=== PATIENT | male | born 1970 | race Caucasian/White ===

== ENCOUNTER 2020-09-16 13:19 | Emergency (ER) | payer OTHER, SELFPAY ==
--- NOTE | ~2020-09-16 | XR_ITS ---
EXAMINATION: XR KNEE, LEFT CLINICAL INFORMATION: Pain COMPARISON: Three 1017 TECHNIQUE: Four views of the left knee. FINDINGS: No fracture or subluxation. Compartmental joint spaces are maintained. No joint effusion. Chondrocalcinosis at the medial and lateral compartments. Small radiopaque densities are seen superficially at the posterior distal thigh. These are unchanged. XR/XR knee LT 4V IMPRESSION: No acute abnormality. Medial and lateral compartment chondrocalcinosis which has progressed since 2017.
[2020-09-16 13:37] VITALS: BP 127/63; PULSE 88; RESP 18; TEMP 37.1; O2SAT 95; BMI 29.2
--- NOTE | 2020-09-16 13:53 | ED.LOWEXIN ---
HPI - Extremity Injury (Lower) General Chief Complaint: Extremity Injury, Lower Stated Complaint: L KNEE PAIN Time Seen by Provider: 09/16/20 13:53 History of Present Illness HPI Narrative: Patient's complains of pain in the left knee when he stood up and felt a pop he had no fall he has had no swelling no fever no other joint swelling Related Data Previous Rx's Medication Instructions Recorded ibuprofen 600 mg PO Q6H PRN #20 tab 09/16/20 Allergies Allergy/AdvReac Type Severity Reaction Status Date / Time No Known Allergies Allergy Verified 09/16/20 13:40 Review of Systems Review of Systems: Left knee pain Negatives are no fever no chills no dizziness or weakness no chest pain no shortness of breath no skin rash no numbness no weakness no calf pain or swelling PMFSH Past Medical History Source: nursing notes reviewed Medical History (Updated 09/16/20 @ 15:32 by MARITA Rosa) Chronic back pain Social History Social History Advance Directives: No Advance Directives Information Provided: No Physical Exam Vital Signs: Vital Signs: Last Vital Signs Temp 98.7 F 09/16/20 13:37 Pulse 88 09/16/20 13:37 Resp 18 09/16/20 13:37 BP 127/63 09/16/20 13:37 Pulse Ox 95 09/16/20 13:37 Body Mass Index 29.2 General appearance no acute distress, uncomfortable holding left knee straight, A&O x3 cooperative The head is normocephalic atraumatic Neck is supple Respiratory no distress Extremities the left knee has both medial and lateral tenderness it is normal appearance there is no obvious effusion no redness no warmth it extends to 180 degrees he can do a straight leg raise, it flexes close to 90, no obvious ligamentous laxity neurovascular intact distal Skin no rashes Neuro no focal deficit Course Course Course Narrative: X-ray showed some degenerative changes, no acute findings no effusion Patient is given Hank wrap and crutches and will follow with orthopedist Discharge Plan Discharge Clinical Impression: Arthralgia of knee, left Patient Disposition: Home, Self-Care Additional Instructions: Follow with orthopedist for for further evaluation Return any concerns Prescriptions: New ibuprofen 600 mg tablet 600 mg PO Q6H PRN (Reason: pain) Qty: 20 RF: 0 Referrals: Shaq Lopez MD [Physician] - 2 days (Left knee pain and arthritis)
[2020-09-16] MEDS: Ketorolac Tromethamine 30 MG/ML VIAL IM (15:33)
== END 2020-09-16 15:47 | disposition home or self-care (01) ==
PROVIDERS: Emergency Provider Emergency Medicine; PCP Internal Medicine
DX: M25.562 Pain in left knee (principal); I10 Essential (primary) hypertension; G90.50 Complex regional pain syndrome I, unspecified
CPT/HCPCS: 73564; 96372; 99283; 99284; J1885

== ENCOUNTER 2020-09-21 07:28 | Outpatient (REF) | payer OTHER, SELFPAY ==
--- NOTE | ~2020-09-21 | XR_ITS ---
EXAMINATION: KNEE X-RAY CLINICAL INFORMATION: Left knee pain COMPARISON: Previous x-ray most recent 09/16/2020 TECHNIQUE: Standing AP view of both knees and sunrise view of the left knee FINDINGS: Left knee: Bone alignment is normal. No fracture or dislocation is seen. There is medial and lateral degenerative meniscal calcification. Standing AP view of the right knee demonstrates degenerative meniscal calcification. XR/XR knee LT 2V IMPRESSION: Bilateral degenerative meniscal calcification.
--- NOTE | ~2020-09-21 | XR_ITS ---
EXAMINATION: KNEE X-RAY CLINICAL INFORMATION: Left knee pain COMPARISON: Previous x-ray most recent 09/16/2020 TECHNIQUE: Standing AP view of both knees and sunrise view of the left knee FINDINGS: Left knee: Bone alignment is normal. No fracture or dislocation is seen. There is medial and lateral degenerative meniscal calcification. Standing AP view of the right knee demonstrates degenerative meniscal calcification. XR/XR knee standing BI IMPRESSION: Bilateral degenerative meniscal calcification.
== END 2020-09-21 07:29 | disposition home or self-care (01) ==
LOC: HO.HOSX 07:28
PROVIDERS: Visit Provider Physician Assistant
DX: M25.562 Pain in left knee (principal); Z91.81 History of falling; W38.XXXA Explosion and rupture of other specified pressurized devices, initial encounter
CPT/HCPCS: 73560; 73565

== ENCOUNTER 2020-09-21 14:07 | Emergency (ER) | payer OTHER, SELFPAY ==
[2020-09-21 14:22] VITALS: BP 123/56; PULSE 84; RESP 16; TEMP 36.9; O2SAT 97; BMI 27.3
[2020-09-21] MEDS: Tetracaine HCl/PF 0.5% Oph Sol 4 ML DROPS 3 DROP EYE-BOTH (15:24)
[2020-09-21] MEDS: Fluorescein Sodium STRIP 1 STRIP EYE-BOTH (15:25)
[2020-09-21 16:02] VITALS: BP 126/64; PULSE 88; RESP 20; TEMP 36.8; O2SAT 98
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
== END 2020-09-21 17:45 | disposition home or self-care (01) ==
PROVIDERS: Emergency Provider Emergency Medicine Emergency Medical Services; PCP Internal Medicine
DX: T65.891A Toxic effect of other specified substances, accidental (unintentional), initial encounter (principal); T26.51XA Corrosion of right eyelid and periocular area, initial encounter; Y93.9 Activity, unspecified; Y92.531 Health care provider office as the place of occurrence of the external cause; Y99.9 Unspecified external cause status; I10 Essential (primary) hypertension
CPT/HCPCS: 99284

== ENCOUNTER → 2020-09-24 14:16 | Outpatient (BNVA) | payer OTHER, SELFPAY | PROVIDERS: PCP Internal Medicine; Visit Provider Physician Assistant | DX: M17.12 Unilateral primary osteoarthritis, left knee (principal); M54.41 Lumbago with sciatica, right side | CPT/HCPCS: 99202; J1040 ==

== ENCOUNTER 2021-07-18 09:45 | Emergency (ER) | payer MEDICAID, SELFPAY ==
--- NOTE | ~2021-07-18 | CT_ITS ---
EXAMINATION: CT ABDOMEN AND PELVIS WITH CONTRAST CLINICAL INFORMATION: Right lower quadrant pain COMPARISON: January 07, 2011 TECHNIQUE: Multidetector volumetric images were obtained from the superior aspect of the liver through the pubic symphysis following administration 85 mL of Omnipaque 350 intravenous contrast. Sagittal and coronal reformatted images were obtained on the technologist's workstation. Oral contrast: No This CT examination was performed using dose optimization techniques as appropriate, variously including the following: *Automated exposure control *Adjustment of mA and/or kV according to patient size (this includes techniques or standardized protocols for targeted exams where dose is matched to indication/reason for exam; i.e. extremities or head) *Use of iterative reconstruction technique DLP: 703 mGy-cm FINDINGS: LUNG BASES: There are a few scattered regions of groundglass opacity present likely related to atelectasis. No pleural or pericardial effusion identified. LIVER, GALLBLADDER, AND BILIARY TREE: There appears to be some degree of fatty infiltration of the liver. Mild hepatomegaly is present with vertical span of 20 cm. The gallbladder is unremarkable with no evidence of radiopaque gallstones, gallbladder wall thickening, or obvious pericholecystic inflammatory changes. PANCREAS: Unremarkable. SPLEEN: Unremarkable. ADRENAL GLANDS: Unremarkable. KIDNEYS AND URETERS: The kidneys are normal in size, shape, and attenuation. No hydronephrosis, hydroureter, or calculi seen. No perinephric stranding. BLADDER: Unremarkable. GASTROINTESTINAL TRACT: No dilated loops of large or small bowel are evident. No free air or free fluid is appreciated. There is a duodenal diverticulum present. There is mild diverticulosis of the sigmoid colon. No pericolonic inflammatory changes seen. The appendix appears unremarkable. ABDOMINAL WALL: No significant hernia is appreciated. LYMPH NODES: No lymphadenopathy appreciated. VASCULAR: Portal vein is patent. Visceral arteries are patent. There is some mild ectasia of the infrarenal abdominal aorta into the aortic bifurcation to a diameter of approximately 2.7 cm. There is some mild ectasia of the right common iliac artery to approximately 1.6 cm in diameter. PELVIC VISCERA: Unremarkable. OSSEOUS STRUCTURES: No suspicious destructive bony lesion identified. CT/CT abdomen pelvis w con IMPRESSION: No evidence of acute appendicitis or colitis. No evidence of obstructive uropathy. Mild hepatomegaly with fatty infiltration. Fleischner guidelines were followed.
[2021-07-18 09:56] VITALS: BP 112/71; PULSE 82; RESP 19; TEMP 36.6; O2SAT 98; BMI 27.7
[2021-07-18 10:23] LABS: MANUAL DIFF FLAG NO
[2021-07-18 10:25] LABS: Basophils Percent Auto 0.4 % (0-2); Eosinophils Absolute Auto 0.1 X10*3/uL (0.0-0.4); Eosinophils Percent Auto 1.8 % (0-4); Hematocrit 43.5 % (42.0-52.0); Hemoglobin 14.5 g/dl (14.0-18.0); Imm Gran Abs Auto 0.02 X10*3/uL (0.00-0.03); Imm Gran Pct Auto 0.3 % (0.0-0.4); Lymphocytes Absolute Auto 2.4 X10*3/uL (1.2-4.9); Lymphocytes Percent Auto 32.8 % (20-40); Mean Corpuscular HGB Conc 33.3 g/dl (31.0-36.0); Mean Corpuscular Hemoglobin 28.5 pg (27.0-33.0); Mean Corpuscular Volume 85.6 fL (80.0-98.0); Mean Platelet Volume 11.1 fL (9.4-12.4); Monocytes Absolute Auto 0.4 X10*3/uL (0.1-1.2); Monocytes Percent Auto 6.1 % (2-11); Neutrophils Absolute Auto 4.2 x10*3/uL (2.0-8.3); Neutrophils Percent Auto 58.6 % (45-73); Platelet Count 316 X10*3/uL (160-400); Red Blood Count 5.08 X10*6/uL (4.60-5.80); Red Cell Distribution Width 13.4 % (11.0-16.0); White Blood Count 7.2 X10*3/uL (4.8-10.8)
[2021-07-18 10:44] LABS: Alanine Aminotransferase 23 U/L (0-40); Albumin Level 4.3 g/dL (3.5-5.0); Alkaline Phosphatase 76 U/L (39-117); Anion Gap 12 (12-20); Aspartate Amino Transferase 17 U/L (5-37); Bilirubin Direct 0.2 mg/dL (0.0-0.5); Bilirubin Total 0.6 mg/dL (0.0-1.0); Blood Urea Nitrogen 23 mg/dL (9-16); Calcium 10.8 mg/dL (8.4-10.2); Carbon Dioxide 29 mmol/L (22-29); Chloride 106 mmol/L (96-108); Creatinine Clr Calc Pharmacy 112.3; Estimated Glomerular Filt Rate > 60; Glucose Random 101 mg/dL (60-115); Lipase 36 U/L (8-78); Potassium 4.5 mmol/L (3.3-5.1); Sodium 142 mmol/L (135-145); Total Protein 7.2 g/dL (6.5-8.0)
--- NOTE | 2021-07-18 10:55 | ED_ITS ---
HPI - Abdominal Pain General Chief Complaint: Abdominal Pain Stated Complaint: Abd pain Time Seen by Provider: 07/18/21 10:44 Source: patient Mode of arrival: ambulatory Limitations: no limitations History of Present Illness HPI narrative: Patient comes to emergency room complaining of right lower quadrant pain. Patient states that the pain started yesterday, gradually getting worse. Patient states that this morning he had couple of episodes of vomiting and diarrhea. Patient states that the right lower quadrant pain gets worse with any movement walking or sitting up. Patient denies fever chills, and no UTI symptoms. Related Data Previous Rx's Medication Instructions Recorded ibuprofen 600 mg tablet 600 mg PO Q6H PRN #20 tab 09/16/20 artifi.tears(hypromellose)(PF) 0.3 1 drp OPHTHALMIC-RIGHT Q4-6H PRN 09/21/20 % eye drops #10 ml oxycodone 5 mg tablet 5 mg PO BID PRN #6 tab 07/18/21 Allergies Allergy/AdvReac Type Severity Reaction Status Date / Time No Known Allergies Allergy Verified 09/24/20 14:43 Review of Systems Review of Systems Constitutional : No Weight loss, No Fever, No Chills, No Night Sweats, No Fatigue, No Malaise ENT/Mouth : No Hearing loss, No Ear Pain, No Nasal Congestion, No Sinus Pain, No Hoarseness, No sore throat, No Rhinorrhea, No Swallowing Difficulty Eyes: No Eye Pain, No Swelling, No Redness, No Foreign Body, No Discharge, No Vision Changes Cardiovascular : No Chest Pain, No SOB, No Dyspnea on Exertion, No Orthopnea, No Edema, No Palpitations Respiratory : No Cough, No Sputum, No Wheezing, No Smoke Exposure, No Dyspnea Gastrointestinal : Complaining of mild nausea, a couple episodes of vomiting and diarrhea, complaining of worsening right lower quadrant pain Genitourinary : no irregular bleeding, No Dysuria, No Urinary Frequency, No Hematuria, No Urinary Incontinence, No Urgency, No Flank Pain, No Urinary Flow Changes, No Hesitancy Musculoskeletal : No joint pain, No Myalgias, No Joint Swelling Skin : No Skin Lesions, No rash Neuro : No Weakness, No Numbness, No Paresthesias, No Loss of Consciousness, No Dizziness, No Headache Psych : No Anxiety/Panic, No Depression, No SI/HI/AH/VH, No Social Issues, Heme/Lymph: No Bruising, No Bleeding,No Lymphadenopathy Endocrine : No Polyuria, No Polydipsia, No Temperature Intolerance Physical Exam Vital Signs: Vital Signs: Last Vital Signs Temp 98 F 07/18/21 09:56 Pulse 71 07/18/21 11:38 Resp 18 07/18/21 11:38 BP 129/82 07/18/21 11:38 Pulse Ox 97 07/18/21 11:38 BMI result Body Mass Index 27.7 Const: Other: Appearance: Alert. Oriented X3. No acute distress. Eyes: Pupils equal, round and reactive to light. ENT: Pharynx normal. Neck: Normal inspection. Neck supple. No lymph nodes noted. No crepitus CVS: Normal heart rate and rhythm. Pulses normal. Normal S1 and S2 Respiratory: No respiratory distress. Breath sounds normal. No Wheezing. No rales Abdomen: Soft , tenderness to palpation in the right lower quadrant over McBurney's point, positive rebound tenderness in the right and left lower quadrants, no guarding Skin: Skin warm and dry. Normal skin color. Normal skin turgor. Extremities: No lower extremity edema. No Lacerations. No Rash Neuro: Oriented X 3. No motor deficit. No sensory deficit. Moving all extermities. No slurred speech. Course Course Course Narrative: I discussed the labs and CT scan with the patient, no acute findings. Also Dr. Ospina took a look at the CT scan, who agrees that the CT scan does not look suspicious for appendicitis. I discussed with the patient that if the abdominal pain worsens, he needs to return to the emergency room. Sometimes, appendicitis is not obvious immediately. As mentioned above, the CT scan shows a normal appendix, and white blood cell count normal and at his baseline. Urinalysis does not show hematuria or UTI. No nephrolithiasis on CT MDM - Abdominal Pain Lab Data Result diagrams: 07/18/21 10:19 07/18/21 10:19 Labs: Lab Results 07/18/21 07/18/21 07/18/21 Range/Units 10:19 10:19 10:19 WBC 7.2 (4.8-10.8) X10*3/uL RBC 5.08 (4.60-5.80) X10*6/uL Hgb 14.5 (14.0-18.0) g/dl Hct 43.5 (42.0-52.0) % MCV 85.6 (80.0-98.0) fL MCH 28.5 (27.0-33.0) pg MCHC 33.3 (31.0-36.0) g/dl RDW 13.4 (11.0-16.0) % Plt Count 316 (160-400) X10*3/uL MPV 11.1 (9.4-12.4) fL Immature Gran % (Auto) 0.3 (0.0-0.4) % Neut % (Auto) 58.6 (45-73) % Lymph % (Auto) 32.8 (20-40) % [place] % (Auto) 6.1 (2-11) % Eos % (Auto) 1.8 (0-4) % Baso % (Auto) 0.4 (0-2) % Lymph # (Auto) 2.4 (1.2-4.9) X10*3/uL [place] # (Auto) 0.4 (0.1-1.2) X10*3/uL Eos # (Auto) 0.1 (0.0-0.4) X10*3/uL Baso # (Auto) 0.0 (0.0-0.2) X10*3/uL Abs Immat Gran (auto) 0.02 (0.00-0.03) X10*3/uL Absolute Neuts (auto) 4.2 (2.0-8.3) x10*3/uL Absolute Nucleated RBC 0.000 (0.0-0.012) X10*3/uL Nucleated RBC % (auto) 0.0 (0.0-0.2) /100WBC Sodium 142 (135-145) mmol/L Potassium 4.5 (3.3-5.1) mmol/L Chloride 106 (96-108) mmol/L Carbon Dioxide 29 (22-29) mmol/L Anion Gap 12 (12-20) BUN 23 H (9-16) mg/dL Creatinine 0.81 (0.5-1.4) mg/dL Estim Creat Clear Calc 112.3 Estimated GFR > 60 Random Glucose 101 (60-115) mg/dL Calcium 10.8 H (8.4-10.2) mg/dL Total Bilirubin 0.6 (0.0-1.0) mg/dL Direct Bilirubin 0.2 (0.0-0.5) mg/dL AST 17 (5-37) U/L ALT 23 (0-40) U/L Alkaline Phosphatase 76 (39-117) U/L Total Protein 7.2 (6.5-8.0) g/dL Albumin 4.3 (3.5-5.0) g/dL Lipase 36 (8-78) U/L Urine Color Urine Appearance Urine pH (5.0-8.0) Ur Specific [place] (1.005-1.025) Urine Protein (NEG-TRACE) MG/DL Urine Glucose (UA) (NEG) MG/DL Urine Ketones (NEG) MG/DL Urine Blood (NEG) Urine Nitrite (NEG) Ur Leukocyte Esterase (NEG) COVID-19 ([facility]) (Negative) COVID-19 Clin Com 07/18/21 07/18/21 Range/Units 10:27 11:28 WBC (4.8-10.8) X10*3/uL RBC (4.60-5.80) X10*6/uL Hgb (14.0-18.0) g/dl Hct (42.0-52.0) % MCV (80.0-98.0) fL MCH (27.0-33.0) pg MCHC (31.0-36.0) g/dl RDW (11.0-16.0) % Plt Count (160-400) X10*3/uL MPV (9.4-12.4) fL Immature Gran % (Auto) (0.0-0.4) % Neut % (Auto) (45-73) % Lymph % (Auto) (20-40) % [place] % (Auto) (2-11) % Eos % (Auto) (0-4) % Baso % (Auto) (0-2) % Lymph # (Auto) (1.2-4.9) X10*3/uL [place] # (Auto) (0.1-1.2) X10*3/uL Eos # (Auto) (0.0-0.4) X10*3/uL Baso # (Auto) (0.0-0.2) X10*3/uL Abs Immat Gran (auto) (0.00-0.03) X10*3/uL Absolute Neuts (auto) (2.0-8.3) x10*3/uL Absolute Nucleated RBC (0.0-0.012) X10*3/uL Nucleated RBC % (auto) (0.0-0.2) /100WBC Sodium (135-145) mmol/L Potassium (3.3-5.1) mmol/L Chloride (96-108) mmol/L Carbon Dioxide (22-29) mmol/L Anion Gap (12-20) BUN (9-16) mg/dL Creatinine (0.5-1.4) mg/dL Estim Creat Clear Calc Estimated GFR Random Glucose (60-115) mg/dL Calcium (8.4-10.2) mg/dL Total Bilirubin (0.0-1.0) mg/dL Direct Bilirubin (0.0-0.5) mg/dL AST (5-37) U/L ALT (0-40) U/L Alkaline Phosphatase (39-117) U/L Total Protein (6.5-8.0) g/dL Albumin (3.5-5.0) g/dL Lipase (8-78) U/L Urine Color STRAW Urine Appearance CLEAR Urine pH 6.0 (5.0-8.0) Ur Specific [place] >= 1.030 H (1.005-1.025) Urine Protein NEG (NEG-TRACE) MG/DL Urine Glucose (UA) NEG (NEG) MG/DL Urine Ketones NEG (NEG) MG/DL Urine Blood NEG (NEG) Urine Nitrite NEG (NEG) Ur Leukocyte Esterase NEG (NEG) COVID-19 ([facility]) Negative (Negative) COVID-19 Clin Com See Note Discharge Plan Discharge Clinical Impression: Acute right lower quadrant pain Patient Disposition: Home, Self-Care Instructions: Abdominal Pain (ED) Additional Instructions: Please follow-up with your primary care physician tomorrow. If you have any worsening or new symptoms, please return to the emergency room or call 911 Prescriptions: New oxycodone 5 mg tablet 5 mg PO BID PRN (Reason: pain) Qty: 6 RF: 0 No Action ibuprofen 600 mg tablet 600 mg PO Q6H PRN (Reason: pain) Qty: 20 RF: 0 artifi.tears(hypromellose)(PF) 0.3 % drops 1 drp ophthalmic-Right Q4-6H PRN (Reason: dry eye(s)) Qty: 10 RF: 0 PMFSH Past Medical History Medical History Arthritis Chronic back pain Hypertension RSD (reflex sympathetic dystrophy) Surgical History H/O hernia repair Social History Social History Patient Tobacco Use Status: Former Tobacco user Smoked in Last 30 Days: Yes Use of substances other than those prescribed or required for medical reasons: No Advance Directives: No Advance Directives Information Provided: Yes Current occupational status: employed Current occupation: General Practitioner -
[2021-07-18 10:58] LABS: Appearance Urine CLEAR; Color Urine STRAW; Glucose Urine UA NEG (NEG); Leukocyte Esterase Urine NEG (NEG); Nitrite Urine NEG (NEG); Specific Gravity - Urine >= 1.030 (1.005-1.025); Urine Blood NEG (NEG); Urine Ketones NEG (NEG); Urine Protein NEG (NEG-TRACE)
--- NOTE | 2021-07-18 10:58 | ED.ABDPAIN ---
HPI - Abdominal Pain General Chief Complaint: Abdominal Pain Stated Complaint: Abd pain Time Seen by Provider: 07/18/21 10:44 Related Data Previous Rx's Medication Instructions Recorded ibuprofen 600 mg tablet 600 mg PO Q6H PRN #20 tab 09/16/20 artifi.tears(hypromellose)(PF) 0.3 1 drp OPHTHALMIC-RIGHT Q4-6H PRN 09/21/20 % eye drops #10 ml Allergies Allergy/AdvReac Type Severity Reaction Status Date / Time No Known Allergies Allergy Verified 09/24/20 14:43 Physical Exam Vital Signs: Vital Signs: Last Vital Signs Temp 98 F 07/18/21 09:56 Pulse 82 07/18/21 09:56 Resp 19 07/18/21 09:56 BP 112/71 07/18/21 09:56 Pulse Ox 98 07/18/21 09:56 BMI result Body Mass Index 27.7 Course Reevaluation(s) Reevaluation #1: BUN mildly elevated at 23, calcium mildly elevated at 10.8. CBC is unremarkable MDM - Abdominal Pain Lab Data Result diagrams: 07/18/21 10:19 07/18/21 10:19 Labs: Lab Results 07/18/21 07/18/21 07/18/21 Range/Units 10:19 10:19 10:19 WBC 7.2 (4.8-10.8) X10*3/uL RBC 5.08 (4.60-5.80) X10*6/uL Hgb 14.5 (14.0-18.0) g/dl Hct 43.5 (42.0-52.0) % MCV 85.6 (80.0-98.0) fL MCH 28.5 (27.0-33.0) pg MCHC 33.3 (31.0-36.0) g/dl RDW 13.4 (11.0-16.0) % Plt Count 316 (160-400) X10*3/uL MPV 11.1 (9.4-12.4) fL Immature Gran % (Auto) 0.3 (0.0-0.4) % Neut % (Auto) 58.6 (45-73) % Lymph % (Auto) 32.8 (20-40) % [place] % (Auto) 6.1 (2-11) % Eos % (Auto) 1.8 (0-4) % Baso % (Auto) 0.4 (0-2) % Lymph # (Auto) 2.4 (1.2-4.9) X10*3/uL [place] # (Auto) 0.4 (0.1-1.2) X10*3/uL Eos # (Auto) 0.1 (0.0-0.4) X10*3/uL Baso # (Auto) 0.0 (0.0-0.2) X10*3/uL Abs Immat Gran (auto) 0.02 (0.00-0.03) X10*3/uL Absolute Neuts (auto) 4.2 (2.0-8.3) x10*3/uL Absolute Nucleated RBC 0.000 (0.0-0.012) X10*3/uL Nucleated RBC % (auto) 0.0 (0.0-0.2) /100WBC Sodium 142 (135-145) mmol/L Potassium 4.5 (3.3-5.1) mmol/L Chloride 106 (96-108) mmol/L Carbon Dioxide 29 (22-29) mmol/L Anion Gap 12 (12-20) BUN 23 H (9-16) mg/dL Creatinine 0.81 (0.5-1.4) mg/dL Estim Creat Clear Calc 112.3 Estimated GFR > 60 Random Glucose 101 (60-115) mg/dL Calcium 10.8 H (8.4-10.2) mg/dL Total Bilirubin 0.6 (0.0-1.0) mg/dL Direct Bilirubin 0.2 (0.0-0.5) mg/dL AST 17 (5-37) U/L ALT 23 (0-40) U/L Alkaline Phosphatase 76 (39-117) U/L Total Protein 7.2 (6.5-8.0) g/dL Albumin 4.3 (3.5-5.0) g/dL Lipase 36 (8-78) U/L Discharge Plan Discharge Prescriptions: No Action ibuprofen 600 mg tablet 600 mg PO Q6H PRN (Reason: pain) Qty: 20 RF: 0 artifi.tears(hypromellose)(PF) 0.3 % drops 1 drp ophthalmic-Right Q4-6H PRN (Reason: dry eye(s)) Qty: 10 RF: 0 PMFSH Past Medical History Medical History Arthritis Chronic back pain Hypertension RSD (reflex sympathetic dystrophy) Surgical History H/O hernia repair Social History Social History Current occupational status: employed Current occupation: Line Service Person -
[2021-07-18] MEDS: ondansetron HCL 4 MG/2 ML VIAL IVPUSH (11:37)
[2021-07-18 11:38] VITALS: BP 129/82; PULSE 71; RESP 18; O2SAT 97
[2021-07-18] MEDS: Morphine Sulfate 4 MG/ML CARTRIDGE IVPUSH (11:38)
[2021-07-18 11:50] LABS: COVID-19 Test Negative (Negative); IDNOW Serial# 9DD0AD1C
[2021-07-18] MEDS: iohexoL 350 MG/ML 100 ML INFUS..BTL IV (12:28)
[2021-07-18] MEDS: Ketorolac Tromethamine 30 MG/ML VIAL IVPUSH (14:38)
== END 2021-07-18 14:42 | disposition home or self-care (01) ==
PROVIDERS: Emergency Provider Emergency Medicine; PCP Internal Medicine
DX: R10.31 Right lower quadrant pain (principal); Z20.822 Contact with and (suspected) exposure to COVID-19; I10 Essential (primary) hypertension
CPT/HCPCS: 36415; 74177; 80048; 80076; 81003; 83690; 85025; 87635; 96374; 96375; 99284; J1885; J2270; J2405; Q9967

== ENCOUNTER 2022-08-19 10:46 | Emergency (ER) | payer MEDICAID, SELFPAY ==
--- NOTE | ~2022-08-19 | XR_ITS ---
EXAMINATION: XR CHEST CLINICAL INFORMATION: Chest COMPARISON: 11/05/2009 TECHNIQUE: Frontal view of the chest was obtained. FINDINGS: No significant abnormality is noted involving the heart, lungs, mediastinum, bony thorax or soft tissues. XR/XR chest 1V IMPRESSION: Unremarkable examination.
--- NOTE | ~2022-08-19 | CT_ITS ---
EXAMINATION: CT HEAD WITHOUT CONTRAST CLINICAL INFORMATION: Hypertension and headache. Evaluate for bleeding. COMPARISON: 12/31/2008 TECHNIQUE: Contiguous axial imaging was performed from the skull base to vertex without intravenous administration of contrast. This CT examination was performed using dose optimization techniques as appropriate, variously including the following: *Automated exposure control *Adjustment of mA and/or kV according to patient size (this includes techniques or standardized protocols for targeted exams where dose is matched to indication/reason for exam; i.e. extremities or head) *Use of iterative reconstruction technique DLP: 807 mGy-cm FINDINGS: There is no evidence of acute intracranial hemorrhage or territorial infarction. No abnormal mass effect or midline shift is seen. Holliday to white matter differentiation is well preserved. No extra-axial fluid collections are identified. No hydrocephalus. No significant volume loss. There is no abnormal attenuation within the brain parenchyma. No acute osseous or soft tissue abnormality. The mastoid air cells and visualized portions of the paranasal sinuses are well aerated. CT/CT head/brain wo IV con IMPRESSION: No acute intracranial pathology.
[2022-08-19 10:52] VITALS: BP 149/95; PULSE 93; RESP 18; TEMP 37.2; O2SAT 97; BMI 29.0
--- NOTE | 2022-08-19 10:55 | ECG_ITS ---
Test Reason : CP Blood Pressure : / mmHG Vent. Rate : 087 BPM Atrial Rate : 087 BPM P-R Int : 142 ms QRS Dur : 100 ms QT Int : 364 ms P-R-T Axes : 033 004 033 degrees QTc Int : 438 ms Normal sinus rhythm Minimal voltage criteria for LVH, may be normal variant ( R in aVL ) Nonspecific T wave abnormality Abnormal ECG When compared with ECG of 01-SEP-2018 18:23, No significant change was found Referred By: Generic ED Physician Electronically Signed By:LAYTON MARTINEZ
[2022-08-19 11:10] LABS: MANUAL DIFF FLAG NO
[2022-08-19 11:11] LABS: Basophils Percent Auto 0.3 % (0-2); Eosinophils Absolute Auto 0.1 X10*3/uL (0.0-0.4); Eosinophils Percent Auto 0.9 % (0-4); Hematocrit 44.3 % (42.0-52.0); Imm Gran Abs Auto 0.02 X10*3/uL (0.00-0.03); Imm Gran Pct Auto 0.3 % (0.0-0.4); Lymphocytes Percent Auto 31.1 % (20-40); Mean Corpuscular HGB Conc 33.9 g/dl (31.0-36.0); Mean Corpuscular Hemoglobin 28.2 pg (27.0-33.0); Mean Corpuscular Volume 83.4 fL (80.0-98.0); Mean Platelet Volume 11.1 fL (9.4-12.4); Monocytes Absolute Auto 0.3 X10*3/uL (0.1-1.2); Monocytes Percent Auto 5.2 % (2-11); Neutrophils Absolute Auto 4.1 x10*3/uL (2.0-8.3); Neutrophils Percent Auto 62.2 % (45-73); Platelet Count 314 X10*3/uL (160-400); Red Blood Count 5.31 X10*6/uL (4.60-5.80); Red Cell Distribution Width 13.2 % (11.0-16.0); White Blood Count 6.5 X10*3/uL (4.8-10.8)
[2022-08-19 11:21] LABS: COVID-19 Test Negative (Negative); IDNOW Serial# 16C4AD1C
[2022-08-19 11:27] LABS: Alanine Aminotransferase 36 U/L (0-40); Albumin Level 4.5 g/dL (3.5-5.0); Alkaline Phosphatase 111 U/L (39-117); Anion Gap 14 (12-20); Aspartate Amino Transferase 18 U/L (5-37); Bilirubin Direct < 0.2 mg/dL (0.0-0.5); Bilirubin Total 0.5 mg/dL (0.0-1.0); Blood Urea Nitrogen 22 mg/dL (9-16); Calcium 9.9 mg/dL (8.4-10.2); Carbon Dioxide 26 mmol/L (22-29); Chloride 101 mmol/L (96-108); Creatinine Clr Calc Pharmacy 128.6; Estimated Glomerular Filt Rate > 60; Glucose Random 228 mg/dL (60-115); Lipase 17 U/L (8-78); Potassium 4.1 mmol/L (3.3-5.1); Sodium 137 mmol/L (135-145); Total Protein 7.3 g/dL (6.5-8.0)
[2022-08-19 11:37] LABS: Troponin-I High Sensitivity < 3.5 ng/L (<3.5-35.0)
[2022-08-19 12:38] VITALS: BP 136/86; PULSE 81; RESP 18; O2SAT 95
--- NOTE | 2022-08-19 12:43 | PC.NURSE ---
pt alert and oriented, skin appropriate for ethnicity, respirations even and unlabored, pt reports substernal/left sided chest pain describes it as pressure/squeezing non-radiating but reports having a bad headache with light sensitivity and states that his blood pressure has been running high at home systolic in the 160-170's. ns on the monitor and bp stable at this time
[2022-08-19 12:48] LABS: Magnesium 1.7 mg/dL (1.6-2.6)
--- NOTE | 2022-08-19 13:57 | ED_ITS ---
HPI - Chest Pain General Chief Complaint: Chest Pain Stated Complaint: Chest pressure/HBP Time Seen by Provider: 08/19/22 13:42 Source: patient Mode of arrival: ambulatory Limitations: no limitations History of Present Illness HPI narrative: A 52-year-old male history of hypertension controlled with amlodipine 2.5 mg daily yesterday patient had the left-sided chest pressure and temporal pounding headache and patient suddenly became diaphoretic patient checked his blood pressure was high and remained high until this morning the chest pain has resolved but the pounding headache still there patient came in for further evaluation. Patient felt left-sided chest pressure that lasted for about 2 hours yesterday with no radiation no relieving factor or aggravating factor. Related Data Previous Rx's Medication Instructions Recorded ibuprofen 600 mg tablet 600 mg PO Q6H PRN pain #20 tabs 09/16/20 artifi.tears(hypromellose)(PF) 0.3 1 drp ophthalmic-Right Q4-6H PRN 09/21/20 % eye drops dry eye(s) #10 mL oxycodone 5 mg tablet 5 mg PO BID PRN pain #6 tabs 07/18/21 amlodipine 5 mg tablet 5 mg PO DAILY #30 tabs 08/19/22 Allergies Allergy/AdvReac Type Severity Reaction Status Date / Time No Known Allergies Allergy Verified 09/24/20 14:43 Review of Systems Review of Systems: All other systems are reviewed and are negative Constitutional: Reports as per HPI and Reports no additional constitutional complaints Eyes: Reports as per HPI and Reports no additional eye complaints Reports system reviewed and no additional complaints, except as documented Cardiovascular: Reports as per HPI and Reports no additional cardiovascular complaints Respiratory: Reports as per HPI and Reports no additional respiratory complaints Gastrointestinal: Reports as per HPI and Reports no additional gastrointestinal complaints Genitourinary: Reports no additional female genitourinary complaints Musculoskeletal: Reports no additional musculoskeletal complaints Skin/Breast: Reports system reviewed and no additional complaints, except as docu Psychiatric: Reports no additional psychiatric complaints Endocrine: Reports no additional endocrine complaints Hematologic/Lymphatic: Reports no additional hematologic/lymphatic complaints Allergic/Immunologic: Reports no additional allergic/immunologic complaints Reports system reviewed and no additional complaints, except as documented and Reports Abnormal speech present [facility] Past Medical History Medical History Arthritis Chronic back pain Hypertension RSD (reflex sympathetic dystrophy) Surgical History H/O hernia repair Social History Social History Patient Tobacco Use Status: Former Tobacco user Smoked in Last 30 Days: No Use of substances other than those prescribed or required for medical reasons: No Advance Directives: No Advance Directives Information Provided: Yes Current occupational status: employed 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 Blood pressure n ormal. Heart rate normal. Respiration rate normal. Temperature normal. Oxygen saturation normal. Appearance: Alert. Oriented X3. No acute distress. Head: Normal external exam. Normocephalic. Atraumatic. No Jeff signs noted. No raccoon eyes noted Eyes: PERRLA. EOMI. Conjunctiva and sclera normal. Eyelids normal. ENT: TM's Normal. Pharynx normal. Uvula midline. Moist mucous membranes. No trismus noted. No drooling noted. No muffled voice noted. Neck: Normal inspection. Neck supple. FROM. No adenopathy. Thyroid Normal. No meningeal signs. No neck mass noted. CVS: Normal heart rate and rhythm. Heart sound normal. No murmurs noted. Pulses normal throughout. Respiratory: No respiratory distress. Painless inspiration. Breath sounds normal. No wheezes/rales/rhonchi noted. Chest nontender. No accessory muscle usage noted or decreased air movement noted. Abdomen: Soft and nontender. Bowel sounds normal in all 4 quadrants. No distention noted. No organomegaly noted. No visible injury noted. Back: No CVA tenderness. Full range of motion noted. Skin: Skin warm and dry. Normal skin color. Normal skin turgor. No rashes/lesions/lacerations noted. Extremities: No lower extremity edema. Extremities exhibit normal range of motion. Extremities nontender. Neuro: Oriented X 3. Cranial nerve exam: II-XII are grossly intact No motor deficit. No sensory deficit. Reflexes normal. Course Course Course Narrative: 52-year-old male with history of hypertension on amlodipine 2.5 mg daily presented with left-sided chest pressure and pounding temporal headache, chest pain has improved headache also improved with Tylenol in the emergency departme nt, patient has a normal labs and stable vital signs, a normal neuro exam and normal head CT with no intracranial bleed. We will recommend to increase amlodipine to 5 mg daily and follow-up with PCP e specially with LVH presents on EKG and patient monitoring his home blood pressure at home which is high. Medical Decision Making Differential Diagnosis Differential Diagnoses: The differential diagnosis associated with the presentation includes (ACS, arrhythmia, pneumonia, pneumothorax, emergency hypertension, intracranial bleed, tension headache.) Lab Data MDM Lab Attestation statement: I reviewed the patient's lab results. 08/19/22 11:00 08/19/22 11:00 Labs: Lab Results 08/19/22 08/19/22 08/19/22 Range/Units 11:00 11:00 11:00 WBC 6.5 (4.8-10.8) X10*3/uL RBC 5.31 (4.60-5.80) X10*6/uL Hgb 15.0 (14.0-18.0) g/dl Hct 44.3 (42.0-52.0) % MCV 83.4 (80.0-98.0) fL MCH 28.2 (27.0-33.0) pg MCHC 33.9 (31.0-36.0) g/dl RDW 13.2 (11.0-16.0) % Plt Count 314 (160-400) X10*3/uL MPV 11.1 (9.4-12.4) fL Immature Gran % (Auto) 0.3 (0.0-0.4) % Neut % (Auto) 62.2 (45-73) % Lymph % (Auto) 31.1 (20-40) % [place] % (Auto) 5.2 (2-11) % Eos % (Auto) 0.9 (0-4) % Baso % (Auto) 0.3 (0-2) % Lymph # (Auto) 2.0 (1.2-4.9) X10*3/uL [place] # (Auto) 0.3 (0.1-1.2) X10*3/uL Eos # (Auto) 0.1 (0.0-0.4) X10*3/uL Baso # (Auto) 0.0 (0.0-0.2) X10*3/uL Abs Immat Gran (auto) 0.02 (0.00-0.03) X10*3/uL Absolute Neuts (auto) 4.1 (2.0-8.3) x10*3/uL Absolute Nucleated RBC 0.000 (0.0-0.012) X10*3/uL Nucleated RBC % (auto) 0.0 (0.0-0.2) /100WBC Sodium 137 (135-145) mmol/L Potassium 4.1 (3.3-5.1) mmol/L Chloride 101 (96-108) mmol/L Carbon Dioxide 26 (22-29) mmol/L Anion Gap 14 (12-20) BUN 22 H (9-16) mg/dL Creatinine 0.77 (0.5-1.4) mg/dL Estim Creat Clear Calc 128.6 Estimated GFR > 60 Random Glucose 228 H (60-115) mg/dL Calcium 9.9 D (8.4-10.2) mg/dL Magnesium 1.7 (1.6-2.6) mg/dL Total Bilirubin 0.5 (0.0-1.0) mg/dL Direct Bilirubin < 0.2 (0.0-0.5) mg/dL AST 18 (5-37) U/L ALT 36 (0-40) U/L Alkaline Phosphatase 111 (39-117) U/L Troponin I High Sens (<3.5-35.0) ng/L Total Protein 7.3 (6.5-8.0) g/dL Albumin 4.5 (3.5-5.0) g/dL Lipase 17 (8-78) U/L COVID-19 ([facility]) Negative (Negative) COVID-19 Clin Com See Note 08/19/22 Range/Units 11:00 WBC (4.8-10.8) X10*3/uL RBC (4.60-5.80) X10*6/uL Hgb (14.0-18.0) g/dl Hct (42.0-52.0) % MCV (80.0-98.0) fL MCH (27.0-33.0) pg MCHC (31.0-36.0) g/dl RDW (11.0-16.0) % Plt Count (160-400) X10*3/uL MPV (9.4-12.4) fL Immature Gran % (Auto) (0.0-0.4) % Neut % (Auto) (45-73) % Lymph % (Auto) (20-40) % [place] % (Auto) (2-11) % Eos % (Auto) (0-4) % Baso % (Auto) (0-2) % Lymph # (Auto) (1.2-4.9) X10*3/uL [place] # (Auto) (0.1-1.2) X10*3/uL Eos # (Auto) (0.0-0.4) X10*3/uL Baso # (Auto) (0.0-0.2) X10*3/uL Abs Immat Gran (auto) (0.00-0.03) X10*3/uL Absolute Neuts (auto) (2.0-8.3) x10*3/uL Absolute Nucleated RBC (0.0-0.012) X10*3/uL Nucleated RBC % (auto) (0.0-0.2) /100WBC Sodium (135-145) mmol/L Potassium (3.3-5.1) mmol/L Chloride (96-108) mmol/L Carbon Dioxide (22-29) mmol/L Anion Gap (12-20) BUN (9-16) mg/dL Creatinine (0.5-1.4) mg/dL Estim Creat Clear Calc Estimated GFR Random Glucose (60-115) mg/dL Calcium (8.4-10.2) mg/dL Magnesium (1.6-2.6) mg/dL Total Bilirubin (0.0-1.0) mg/dL Direct Bilirubin (0.0-0.5) mg/dL AST (5-37) U/L ALT (0-40) U/L Alkaline Phosphatase (39-117) U/L Troponin I High Sens < 3.5 (<3.5-35.0) ng/L Total Protein (6.5-8.0) g/dL Albumin (3.5-5.0) g/dL Lipase (8-78) U/L COVID-19 ([facility]) (Negative) COVID-19 Clin Com Independent Interpretation I performed an independent interpretation of an: EKG and Plain X-Ray (Chest: Unremarkable examination) Interpretation: Normal sinus rhythm at 87 beats per minutes, LVH, nonspecific T-wave flattening and inversion, no significant change from previous EKG. Radiology Impression Discussion of test interpretation with radiology: I have reviewed the radiologist's reading. Discharge Plan Discharge Clinical Impression: Hypertension, Atypical chest pain Patient Disposition: Home, Self-Care Instructions: Hypertension (ED) Additional Instructions: Take amlodipine total of 5 mg daily you will be prescribed supply for 30 days until you see your primary doctor and refill your prescription. Prescriptions: New amlodipine 5 mg tablet 5 mg PO DAILY Qty: 30 0RF No Action ibuprofen 600 mg tablet 600 mg PO Q6H PRN (Reason: pain) Qty: 20 0RF artifi.tears(hypromellose)(PF) 0.3 % drops 1 drp ophthalmic-Right Q4-6H PRN (Reason: dry eye(s)) Qty: 10 0RF oxycodone 5 mg tablet 5 mg PO BID PRN (Reason: pain) Qty: 6 0RF Referrals: Shannon Franklin NP [Primary Care Provider] -
[2022-08-19] MEDS: Acetaminophen 325 MG TABLET 650 MG PO (14:15)
[2022-08-19 14:16] VITALS: BP 124/84; PULSE 80; RESP 18
[2022-08-19 15:00] LABS: Troponin-I High Sensitivity < 3.5 ng/L (<3.5-35.0)
== END 2022-08-19 15:45 | disposition home or self-care (01) ==
PROVIDERS: Physician Assistant; Emergency Provider Emergency Medicine; PCP Nurse Practitioner Primary Care
DX: R07.89 Other chest pain (principal); I10 Essential (primary) hypertension; Z20.822 Contact with and (suspected) exposure to COVID-19; Z87.891 Personal history of nicotine dependence
CPT/HCPCS: 36415; 70450; 71045; 80053; 82248; 83690; 83735; 84484; 85025; 87635; 93005; 99284; 99285

== ENCOUNTER → 2025-01-03 18:54 | Outpatient (BNV) | payer OTHER, SELFPAY | PROVIDERS: Visit Provider Specialist | DX: M25.511 Pain in right shoulder (principal); M24.851 Other specific joint derangements of right hip, not elsewhere classified | CPT/HCPCS: 73221; 73721 ==

== ENCOUNTER 2025-01-03 19:30 | Outpatient (REF) | payer OTHER, SELFPAY ==
--- NOTE | ~2025-01-03 | MR_ITS ---
CLINICAL HISTORY: PAIN IN RT SHOULDER MR right shoulder without gadolinium Comparison: None provided Findings: No acute fracture or pathologic bone lesion. There are AC joint degenerative changes.. Type II acromion without downsloping. No effusion. The supraspinatus, infraspinatus, subscapularis, and teres minor tendons are intact. No tears of the long head of biceps tendon. Glenoid labrum is intact. IMPRESSION: AC joint degenerative changes.. This document has been electronically signed by: Brandon Abbott MD on 01/05/2025 09:02:50
--- NOTE | ~2025-01-03 | MR_ITS ---
CLINICAL HISTORY: PAIN RT HIP MR right hip without gadolinium Comparison: None provided Findings: There is a questionable anterosuperior labral tear. No fractures. No pathologic bone lesions. Acetabulum and femoral neck unremarkable. No acetabular retroversion. No joint effusion. Acetabular labrum otherwise intact. Musculotendinous structures are intact. IMPRESSION: Questionable anterosuperior labral tear. Consider MR arthrography to further evaluate. This document has been electronically signed by: Brandon Abbott MD on 01/05/2025 08:58:44
--- OUTSIDE RECORDS SUMMARY | 2025-01-03 19:33 | XMS_ITS | Clinical Summary ---
Author Organization [facility] Address [address] [place] [address] Care Team Providers Care Policeman Name Role Phone Unavailable Primary Care Provider Unavailabl e Surgical History Surgery Date Site/Laterality Comments ESOPHAGOGASTRODUODENOSCOPY 03/29/2010 PROCEDURE: MT EGD TRANSORAL BIOPSY SINGLE/MULTIPLE; COMMENT: esophageal bx: Normal COLONOSCOPY 05/29/2010 PROCEDURE: MT COLONOSCOPY FLX DX W/COLLJ SPEC WHEN PFRMD; COMMENT: Normal OTHER SURGICAL HISTORY 06/20/2010 PROCEDURE: REPAIR INCARCERATED HERNI; COMMENT: mesh repair, incarcerated ventral hernia, [facility] OTHER SURGICAL HISTORY 07/22/2010 PROCEDURE: RADIOLOGIC EXAM ESOPHAGUS SINGLE CONTRAST STUDY; COMMENT: Normal; OTHER SURGICAL HISTORY 2010 PROCEDURE: MT URTROLITHOTOMY UPPER ONE-THIRD URETER Medical History Medical History Date Comments RSD (reflex sympathetic dystrophy) DX:RSD (reflex sympathetic dystrophy) PUD (peptic ulcer disease) DX:PU D (peptic ulcer disease) CTS (carpal tunnel syndrome) DX: CTS (carpal tunnel syndrome) Hemiplegia (CMS/HCC V24, CMS/[facility] V28) DX:Hemiplegia ([facility]); COMMENT: left leg after cortisone injection 1995 Chronic pain DX:Chronic pain Esophageal reflux DX:Esophageal reflux Diverticulosis of colon (wit hout mention of hemorrhage) 07/15/2010 DX:Diverticulosis of colon ( without mention of hemorrhage) 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 D X:Diverticula of small intestine DVT (deep venous thrombosis) (CMS/HCC V24, CMS/HCC V28) 09/12/2010 DX:DVT (deep venous thrombos is) ([facility]) Urolithiasis DX:Urolithiasis; COMMENT: Right ureter Family History Medical History Relation Name Comments Diabetes Father age 71 in Nov 2018 Hyperlipidemia Father Hypertension Father Colon cancer Maternal Grandfather dx age > 66 Stomach cancer Maternal Grandmother Diabetes Mother Hyperlipidemia Mother Hypertension Mother Other: brain aneurysm Mother also m at uncle and cousin Thyroid disease Mother Uterine cancer Mother dx age 42 Colon cancer Uncle 1 maternal, age 5 1 Colon cancer Uncle 2 maternal, age 5 3 Blindness Neg Hx Cataracts Neg Hx Glaucoma Neg Hx Macular degeneration Neg Hx Strabismus Neg Hx Relation Name Status Comments Father Maternal Grandfather Maternal Grandmother Mother Alive Uncle 1 Uncle 2 Social History Tobacco Use Types Packs/Day Years Used Date Smoking Tobacco: Every Day Cigarettes Smokeless Tobacco: Never Alcohol Use Standard Drinks/Week Comments No 0 (1 standard drink = 0.6 oz pur e alcohol) Sex and Gender Information Value Date Recorded Sex Assigned at Not on file Legal Sex Male 12:34 AM EST Gender Identity Not on file Sexual Orientation Not on file Obstetrics History Plan of Treatment Health Maintenance Due Date Last Done Comments Hepatitis B Vaccines (1 of 3 - 19+ 3-dose series) 1987 Pneumococcal Vaccine: 50+ Years (1 of 2 - PCV) 1987 Pneumococcal Vaccine: Pediatrics (0 to 5 Years) and At-Risk Patients (6 to 49 Years) (1 of 2 - PCV) 1987 Zoster Vaccines (1 of 2) 2018 Cholesterol Screening (Lipid Panel) 06/07/2022 Colorectal Cancer Screening: Colonoscopy 06/07/2022 Depression Screening 06/07/2022 HIV Screening 06/07/2022 Hepatitis C Screening 06/07/2022 Social Influencers of Health Screening 06/07/2022 COVID-19 Vaccine (2 - 2023-2 5 season) 2024 10/07/2020 Influenza Vaccine (#1) 2025 DTaP,Tdap,and Td Vaccines (4 - Td or Tdap) 10/14/2028 10/14/2018, 07/22/2018, 12/28/2007 HIB Vaccines Aged Out No longer eligi ble based on patient's age to complete this topic HPV Vaccines Aged Out No longer eligi ble based on patient's age to complete this topic Hepatitis A Vaccines Aged Out No long er eligible based on patient's age to complete this topic IPV Vaccines Aged Out No longer eligi ble based on patient's age to complete this topic MMR Vaccines Aged Out No longer eligi ble based on patient's age to complete this topic Meningococcal ACWY Vaccine Aged Out N o longer eligible based on patient's age to complete this topic Meningococcal B Vaccine Aged Out No l onger eligible based on patient's age to complete this topic RSV Immunization Patients Under 20 months Aged Out No longer eligible b ased on patient's age to complete this topic Varicella Vaccines Aged Out No longer eligible based on patient's age to complete this topic
== END 2025-01-03 19:31 | disposition home or self-care (01) ==
LOC: HO.MRI 19:30
DX: M25.561 Pain in right knee (principal)
CPT/HCPCS: 73221; 73721